=== PATIENT | male | born 1950 | race Caucasian/White ===

== ENCOUNTER → 2017-07-09 | Day surgery (SDC) | payer OTHER ==
[2017-06-24 12:53] LABS: BASOPHILS # (AUTO) 0.1 (0.0-0.1); EOSINOPHILS # (AUTO) 0.5 (0.0-0.4); EOSINOPHILS % 3.4 % (0.0-6.0); HEMATOCRIT 43.1 % (38.2-49.6); HEMOGLOBIN 14.7 g/dL (14.0-18.0); LYMPHOCYTES # (AUTO) 2.4 (1.0-3.2); LYMPHOCYTES % 17.7 % (18.0-39.1); MEAN CORPUSCULAR HEMOGLOBIN 30.7 pg (28-32); MEAN CORPUSCULAR HGB CONC 34.1 g/dL (31-35); MONOCYTES # (AUTO) 0.9 (0.2-0.8); MONOCYTES % 6.9 % (4.4-11.3); NEUTROPHILS # (AUTO) 9.5 (2.1-6.9); NEUTROPHILS % 69.6 % (38.7-80.0); PLATELET COUNT 322 x10e3/uL (140-360); RED BLOOD COUNT 4.79 x10e6/uL (4.3-5.7); RED CELL DISTRIBUTION WIDTH 14.6 % (11.7-14.4)
--- NOTE | 2017-06-24 13:04 | Diagnostic Imaging Report ---
PROCEDURE: Frontal and lateral views of the chest. COMPARISON: None. INDICATIONS: PRE OPERATIVE CHEST X-RAY FOR ANKLE SURGERY FINDINGS: Lines/tubes: None. Lungs: The lungs are well inflated. There are biapical pleural-parenchymal scarring. Questionable airspace opacities in both lung bases especially the left lung base. Pleura: There is no pleural effusion or pneumothorax. Heart and mediastinum: The heart and the mediastinum are normal. Bones: No acute bony abnormality. IMPRESSION: Questionable airspace opacities in both lung bases especially the left lung base, worrisome for pneumonia. Dictated by: Juvenal Parra M.D. on 06/24/2017 at 13:03 Electronically approved by: Juvenal Parra M.D. on 06/24/2017 at 13:03
[2017-06-24 13:14] LABS: ANION GAP 16.3 mmol/L (8-16); BLOOD UREA NITROGEN 18 mg/dL (7-26); BUN/CREATININE RATIO 16 (6-25); CALCIUM 9.9 mg/dL (8.4-10.2); CARBON DIOXIDE 28 mmol/L (22-29); CHLORIDE 99 mmol/L (98-107); CREATININE, SERUM 1.16 mg/dL (0.72-1.25); EST GLOMERULAR FILTRATION RATE > 60 ML/MIN (60-); GLUCOSE 99 mg/dL (74-118); POTASSIUM 4.3 mmol/L (3.5-5.1); SODIUM 139 mmol/L (136-145)
[~2017-07-09] MED LIST: AMLODIPINE BESYL5 MG PO; B-100 COMPLEX100 MG PO; BACITRACIN 50,000 UNIT VIAL ONE; BUPIVACAINE HCL 0.5% INJ 30 ML VIAL INJ ONE; CEFAZOLIN SOD 2 GM/D5W 50ML 50 ML IV ONE; DEXAMETHASONE SOD PHOS INJ 4 MG/ML VIAL ONE; DILTIAZEM 24HR120 M1 PO; FENTANYL CITRATE/PF 100MCG/2 ML INJ ONE; LIDOCAINE HCL 2% LOCAL INJ 5 ML SDV VIAL INJ ONE; LOSARTAN-HCTZ1 EAC1 PO; ONDANSETRON HCL INJ 2 MG/ML VIAL ONE; PROAIR HFA INH8.5 GM INH; PROPOFOL IV EMULSION 10 MG/ML 20 ML VIAL ONE; SEVOFLURANE INHAL SOLN 250 ML PEN BTL ONE
--- OUTSIDE RECORDS SUMMARY | 2017-07-09 09:13 | XMS REPORT ---
Author Author [facility] Address Unknown Phone Unavailable Care Team Providers Care Assistant Guest Services Manager Name Role Phone KALRO PHAN Unavailable Unavailable Problems This patient has no known problems. Allergies, Adverse Reactions, Alerts This patient has no known allergies or adverse reactions. Medications This patient has no known medications. Results Test Description Test Time Test Comments Text Results Atomic Results Result Comments CHEST 2 VIEWS [place] [address] Patient Name: JACKY SOUSA MR #: [id number] : 1950 Age/Sex: 67/M Req # : [id number] Adm Physician: Ordered by: KARLO PHAN MD Report #: [id number] Location: OR Room/Bed: Procedure: [id number] DX/CHEST 2 VIEWS Exam Date: 06/24/17 Exam Time : 1200 REPORT STATUS: Signed PROCEDURE: Frontal and lateral views of the chest. COMPARISON: None. INDICATIONS: PRE OPERATIVE CHEST X- RAY FOR ANKLE SURGERY FINDINGS: Lines/tubes: None. Lungs: The lungs are well inflated. There are biapical pleural-parenchymal scarring. Questionable airspace opacities in both lung bases especially the left lung base. Pleura: There is no pleural effusion or pneumothorax. Heart and mediastinum: The heart and the mediastinum are normal. Bones: No acute bony abnormality. IMPRESSION: Questionable airspace opacities in both lung bases especially the left lung base, worrisome for pneumonia. Dictated by: Desirae Parra M.D. on 06/24/2017 at 13: 03 Electronically approved by: Desirae Parra M.D. on 06/24/2017 at 13:03 Dictated By: DESIRAE PARRA MD [id number] COPY TO: KARLO PHAN MD
--- NOTE | 2017-07-10 09:53 | Operative Report ---
DATE OF PROCEDURE: July 09, 2017 PREOPERATIVE DIAGNOSIS: Right Maisonneuve fracture. POSTOPERATIVE DIAGNOSIS: Right Maison[place]uve fracture. OPERATIONS/PROCEDURES PERFORMED 1. The patient underwent a closed reduction of the right ankle mortise. 2. Reduction of the right syndesmosis. 3. Screw stabilization of the right syndesmosis. USER SUPPORT ANALYST: None. ANESTHESIA: General endotracheal intubation anesthesia. IV FLUIDS: Per the anesthesia record. BRIEF DESCRIPTION OF THE PATIENT'S OPERATIVE PROCEDURE: Mr. Mora was taken to the operating room and placed in the supine position on the operating table. Following induction of general anesthesia, as well as endotracheal intubation, the patient's right lower extremity was examined under anesthesia. He was found to have mild bruising and swelling involving his right lower leg. Fluoroscopic evaluation of the patient's ankle joint demonstrated widening of the ankle mortise and syndesmosis. He also had a proximal fibular shaft fracture. The patient's lower extremity was prepped and draped in a standard surgical fashion. The case was begun by reducing the patient's ankle mortise in a closed fashion. An incision was created over the fibula proximal to the articular surface of the tibial plafond. This incision was carried through skin only. Dissection was carried to the level of the fibula. Under fluoroscopic guidance, a drill was placed against the lateral aspect of the fibula. A tenaculum clamp was used to hold the syndesmosis in its reduced position. The foot was placed in neutral dorsiflexion as the drill was used to create a channel for the syndesmosis screw. The screw was then inserted through the fibula into the tibia transfixing the ankle in its reduced position while also reducing the syndesmosis. A 2nd screw was then inserted parallel to the first. Care was taken to not over tighten the screws. Fluoroscopic evaluation demonstrated reduction of the patient's ankle mortise, as well as appropriate placement of the hardware. The patient's wound was copiously irrigated and closed in a multilayer fashion. Sterile dressings were applied. The patient was then awakened and taken to the postanesthesia care in stable condition. When Mr. Mora presented to the hospital, his splint was in significant disrepair and extremely dirty. I had a conversation with Mr. Mora prior to surgery concerning proper care for this splint, and the need to remain nonweightbearing for 10 weeks following his surgery. The patient expressed understanding of treatment expectations and his postoperative course. Job#: [id number] RUTH
== END | disposition home or self-care (01) ==
LOC: OR 09:11
PROVIDERS: ATTEND Specialist
DX: S82.861A Displaced Maisonneuve's fracture of right leg, initial encounter for closed fracture (principal); S93.431A Sprain of tibiofibular ligament of right ankle, initial encounter; S82.51XA Displaced fracture of medial malleolus of right tibia, initial encounter for closed fracture; S82.491A Other fracture of shaft of right fibula, initial encounter for closed fracture; I12.9 Hypertensive chronic kidney disease with stage 1 through stage 4 chronic kidney disease, or unspecified chronic kidney disease; N18.9 Chronic kidney disease, unspecified; J44.9 Chronic obstructive pulmonary disease, unspecified; R00.1 Bradycardia, unspecified; F17.210 Nicotine dependence, cigarettes, uncomplicated; X58.XXXA Exposure to other specified factors, initial encounter; Y93.89 Activity, other specified; Y92.89 Other specified places as the place of occurrence of the external cause; Y99.0 Civilian activity done for income or pay; Z01.810 Encounter for preprocedural cardiovascular examination; Z01.812 Encounter for preprocedural laboratory examination; Z01.818 Encounter for other preprocedural examination; Z79.82 Long term (current) use of aspirin; Z68.35 Body mass index [BMI] 35.0-35.9, adult
CPT/HCPCS: 27829; 36415; 71046; 76001; 80048; 85025; 93005; C1713; J1100; J2001; J2405

== ENCOUNTER → 2017-10-08 | Day surgery (SDC) | payer OTHER ==
[2017-10-06 11:26] LABS: ANION GAP 12.5 mmol/L (8-16); CALCIUM 10.4 mg/dL (8.4-10.2); CREATININE, SERUM 1.41 mg/dL (0.72-1.25); POTASSIUM 4.5 mmol/L (3.5-5.1)
[~2017-10-08] MED LIST changes: +AMIODARONE HCL200 MG PO; +ASPIR 8181 MG PO; -BACITRACIN 50,000 UNIT VIAL ONE; +BREO ELLIPTA INH; +BUPIVACAINE 0.5%/EPI 30 ML SDV INJ ONE; +MIDAZOLAM HCL 2 MG/2 ML VIAL ONE; +POTASSIUM CHLO10 ME1 PO; +VIT B12
--- NOTE | 2017-10-10 09:58 | Operative Report ---
DATE OF PROCEDURE: October 08, 2017 PREOPERATIVE DIAGNOSIS: Symptomatic hardware, right ankle. POSTOPERATIVE DIAGNOSIS: Symptomatic hardware, right ankle. OPERATION/PROCEDURE PERFORMED: The patient underwent removal of 2 syndesmosis screws from the right ankle. OPERATOR ASSISTANT I CEMENTING: None. ANESTHESIA: IV sedation with monitored anesthesia care. BLOOD LOSS: 5 mL. IV FLUIDS: Per the anesthesia record. BRIEF DESCRIPTION OF THE PATIENT'S OPERATIVE PROCEDURE: Mr. Mora was taken to the operating room and placed in the supine position on the operating table. Following induction general anesthesia, as well as endotracheal intubation, the patient's right lower extremity was examined under anesthesia. He was found to have a well-healed incision over his ankle joint. Fluoroscopic examination of the ankle joint demonstrated 2 screws traversing the syndesmosis region of the ankle joint distally. The patient's lower extremity was prepped and draped in the standard surgical fashion. An incision was created through the previous incision and this incision was carried through skin only. Blunt dissection was used to deepen the incision to the level of the patient's distal fibula. The 2 screws were identified and easily removed. The wounds were copiously irrigated. The wound was closed in a multilayer fashion. Repeat fluoroscopic evaluation of the ankle joint demonstrated no change in alignment of the ankle mortis. The patient was then awakened and taken to the postanesthesia care unit in stable condition. Job#: [id number] RUTH
== END | disposition home or self-care (01) ==
LOC: OR 09:17
PROVIDERS: ATTEND Specialist
DX: Z45.89 Encounter for adjustment and management of other implanted devices (principal); I10 Essential (primary) hypertension; I48.91 Unspecified atrial fibrillation; J44.9 Chronic obstructive pulmonary disease, unspecified; F17.210 Nicotine dependence, cigarettes, uncomplicated; Z01.810 Encounter for preprocedural cardiovascular examination; Z01.812 Encounter for preprocedural laboratory examination; Z79.82 Long term (current) use of aspirin; Z68.35 Body mass index [BMI] 35.0-35.9, adult
CPT/HCPCS: 20680; 36415; 76000; 80048; 93005; J1100; J2001; J2250; J2405